=== PATIENT | male | born 1955 | race Two or more races ===

== ENCOUNTER → 2024-06-27 | Outpatient (CLI) | payer OTHER, SELFPAY ==
[2024-06-27 10:22] LABS: Anion Gap 6 (7-16); BUN/Creatinine Ratio 12 Ratio (12-20); Blood Urea Nitrogen 11 mg/dL (9-23); Calcium 9.3 mg/dL (8.3-10.6); Carbon Dioxide 30.2 mMol/L (20.0-31.0); Chloride 102 mMol/L (98-107); Creatinine (Component) 0.9 mg/dL (0.6-1.3); Glucose 156 mg/dL (74-106); Osmolality,Calculated 278 (275-295); Potassium 4.4 mMol/L (3.4-5.1); Sodium 138 mMol/L (136-145); eGFR > 60 See Note
[2024-06-27 10:23] LABS: Glucose Estimated Average 235 mg/dL (80-131); Hemoglobin A1C 9.8 % Hgb (4.8-6.0)
[2024-06-27 10:28] LABS: Creatinine MALB Rnd Ur 77 mg/dL (30-125); Microalbumin Creat Ratio 13 mg/gCrea (<30); Microalbumin, Random Urine 10 mg/L (0-300)
== END | disposition home or self-care (01) ==
PROVIDERS: PCP Family Medicine; Referring Provider Family Medicine; Visit Provider Family Medicine
DX: E11.9 Type 2 diabetes mellitus without complications (principal)
CPT/HCPCS: 36415; 80048; 82043; 82570; 83036

== ENCOUNTER → 2024-11-15 | Outpatient (CLI) | payer OTHER, SELFPAY ==
[2024-11-15 09:51] LABS: Basophils % (Auto) 1 % (0-2.5); Eosinophils # (Auto) 0.1 Thou/mm3 (0.0-0.5); Eosinophils % (Auto) 1 % (0-10); Hematocrit 41.5 % (41.0-53.0); Hemoglobin 14.3 g/dL (13.5-16.0); Immature Granulocytes % (Auto) 0 % (0-0); Immature Granulocytes Auto 0.02 Thou/mm3 (0.00-0.00); Lymphocytes # (Auto) 2.6 Thou/mm3 (1.0-4.8); Lymphocytes % (Auto) 36 % (10-50); Mean Corpuscular HGB Conc 34.5 g/dl (31.0-37.0); Mean Corpuscular Hemoglobin 32.4 pg (25.0-35.0); Mean Corpuscular Volume 94 fL (80-100); Monocytes # (Auto) 0.6 Thou/mm3 (0.0-0.8); Monocytes % (Auto) 8 % (0-12); Neutrophils % (Auto) 55 % (37-80); Nucleated Red Blood Cell % 0 /100 WBC (0); Platelet Count 240 Thou/mm3 (140-440); RDW Standard Deviation 45.4 fL (35.1-43.9); Red Blood Count 4.42 Miln/mm3 (4.50-5.90); White Blood Count 7.3 Thou/mm3 (3.8-10.6)
[2024-11-15 10:01] LABS: Glucose Estimated Average 200 mg/dL (80-131); Hemoglobin A1C 8.6 % Hgb (4.8-6.0)
[2024-11-15 10:08] LABS: Alanine Aminotransferase 25 U/L (10-49); Albumin, Serum 4.5 gm/dL (3.4-4.8); Alkaline Phosphatase 76 U/L (46-116); Anion Gap 7 (7-16); Aspartate Amino Transferase 19 U/L (0-34); BUN/Creatinine Ratio 13 Ratio (12-20); Bilirubin,Direct 0.2 mg/dL (0.0-0.3); Bilirubin,Total 0.7 mg/dL (0.3-1.2); Blood Urea Nitrogen 13 mg/dL (9-23); Carbon Dioxide 28.1 mMol/L (20.0-31.0); Cardiac Risk Estimate 4.4 RATIO (4.0-6.7); Chloride 103 mMol/L (98-107); Cholesterol 212 mg/dL (132-200); Glucose 165 mg/dL (74-106); HDL Cholesterol 48 mg/dL (40-60); LDL Cholesterol,Calculated 125 mg/dL (0-130); Osmolality,Calculated 279 (275-295); Sodium 138 mMol/L (136-145); Total Protein 7.5 gm/dL (5.7-8.2); Triglycerides 196 mg/dL (30-150); eGFR > 60 See Note
[2024-11-15 10:44] LABS: Creatinine MALB Rnd Ur 89 mg/dL (30-125); Microalbumin Creat Ratio 16 mg/gCrea (<30); Microalbumin, Random Urine 14 mg/L (0-300)
== END | disposition home or self-care (01) ==
LOC: COPL 09:00
PROVIDERS: PCP Family Medicine; Referring Provider Family Medicine; Visit Provider Family Medicine
DX: E11.65 Type 2 diabetes mellitus with hyperglycemia (principal); I10 Essential (primary) hypertension
CPT/HCPCS: 36415; 80048; 80061; 80076; 82043; 82570; 83036; 85025

== ENCOUNTER → 2024-11-16 | Outpatient (CLI) | payer OTHER, SELFPAY ==
[2024-11-20 07:10] LABS: Fecal Globin Result NOT DETECTED (NOT DETECTED)
== END | disposition home or self-care (01) ==
PROVIDERS: PCP Family Medicine; Referring Provider Family Medicine; Visit Provider Family Medicine
DX: Z12.11 Encounter for screening for malignant neoplasm of colon (principal)
CPT/HCPCS: 82274; G0328

== ENCOUNTER 2024-12-06 01:26 | Emergency (ER) | payer OTHER, SELFPAY ==
[2024-12-06 01:30] VITALS: BMI 34.0
[2024-12-06 01:41] VITALS: BP 200/104; BP 200/113; PULSE 77; RESP 19; TEMP 36.6; O2SAT 96
--- NOTE | 2024-12-06 01:52 | EDNOTE_ITS ---
ED Headache RME/HPI General Chief Complaint: Headache Stated Complaint: HEADACH HIGH BLOOD PRESSURE Time Seen by Provider: 12/06/24 01:53 Arrival date/time: 12/06/24 01:26 RME / HPI RME / HPI Narrative: This section includes all my notes and documentations, including HPI, PE, and ED course. Ryder Delgado MD HPI: 69 y/o male with Hx of Hypertension and Type II DM presents to ED c/o severe headache x 24 hours. Patient reports taking Valsartan each night. Denies chest pain, nausea, vomiting, or taking any other medication. No other complaints. ROS: All negative except as documented in HPI. Physical Exam: General:? Alert and oriented.? No acute distress.?? Eyes:? Conjunctivae and lids clear.? EOMI.? PERRL. ENT:? No nasal congestion.? Pharynx normal.? Tympanic membrane normal bilaterally.??? Neck:? Supple.? No carotid bruit.? No JVD.?? Heart:? RRR.? Lungs:? No respiratory distress.? Good air movement.? No rhonchi, wheezing, rales.?? Abdomen:? Soft and nontender.? Legs:? No clubbing, cyanosis, edema.? Skin:? Warm and dry.?? Neuro:? Alert and oriented X 3.? Cranial Nerves II-XII grossly intact.? No peripheral motor deficits. I reviewed all diagnostic test results. My interpretation of the EKG is sinus rhythm with no acute ST?T changes. My review of the Head/Brain CT report is NAD. Blood tests unremarkable. UA showed positive leukocyte Estrace, 12 WBC, and bacteria. Positive influenza. At this point, diagnoses include Hypertensive Urgency, Influenza, UTI. Treatment here included Metoprolol, Catapres, Rocephin, Tamiflu, Methylprednisolone, IV fluid. Significant improvement noted. Recommended outpatient treatment. Based on my best medical judgment, made decision no further evaluation or treatment indicated at this time. Patient understands and agrees to the discharge instructions customized and printed, see below. Discharge Instructions from Dr. Delgado printed for you: 1. Fortunately, there is no life-threatening condition. Such as stroke or brain tumor or heart attack. 2. But you have several significant conditions. Very high BP and influenza and urinary tract infection. See attached handouts. 3. Take Tamiflu for influenza. And cefdinir for UTI. 4. To flush your urinary tract, increase oral fluid and maintain clear urine. If dark or yellow, increase oral fluid. 5. Take clonidine 0.1 mg pills as needed based on SBP (higher number of BP). Check your BP twice daily (about 12 hours apart). If SBP > 140, take one pill. If SBP > 160, take two pills. If SBP > 180, take three pills. If SBP > 200, take four pills. 6. See a private doctor on 12/08/2024 for recheck and further care. Ask for help until you are completely better. Ask for help manage your BP. You will live longer with lower BP and slower heart rate. 7. Seek immediate medical care with worsening or with any concerns. Ryder Delgado MD Related Data Previous Rx's ?Medication ?Instructions ?Recorded cefdinir 300 mg capsule 300 mg PO BID #14 caps 12/06 clonidine HCl 0.1 mg tablet 0.1 mg PO BID #60 tabs oseltamivir 75 mg capsule (Tamiflu) 75 mg PO BID 5 day s #10 caps 12/06/24 Allergies Allergy/AdvReac Type Severity Reaction Status Date / Time No Known Allergies Allergy Verified 12/06/24 01:35 Review of Systems Review of Systems Systems Reviewed: All systems reviewed, normal except as documented Past Medical History Past Medical History CARDIAC: Positive Hypertension ENDOCRINE: Positive Diabetes Mellitus Type 2 Social History SMOKING STATUS: Never smoker ED Exam Narrative Physical exam: Refer to HPI above Course Quality Measures none Orders Category Date Time Status Bedside COVID-19 Antigen Test NOW Care 12/06/24 01:54 Active Bedside Influenza A&B Antigen Test NOW Care 12/06/24 01:54 Completed EKG (ED ONLY) *Do not use* NOW Care 12/06/24 01:55 Completed Saline [Insert IV] NOW Care 12/06/24 01:[address] head/brain wo con Stat Exams 12/06/24 01:55 Taken EKG (ED Only) Stat Exams 12/06/24 01:55 Ordered BNP [B-Type Natriuretic Peptide] Stat Lab 12/06/24 02:05 Completed Bilirubin,Direct Stat Lab 12/06/24 02:05 Completed CBC Stat Lab 12/06/24 02:05 Completed CMP [Comprehensive Metabolic Panel] Stat Lab 12/06/24 02:05 Completed COVID-19 Antigen (In-House) Stat Lab 12/06/24 Ordered Free T4 (Free Thyroxine) Stat Lab 12/06/24 02:05 Completed Magnesium Stat Lab 12/06/24 02:05 Completed TSH [Thyroid Stimulating Hormone] Stat Lab 12/06/24 02:05 Completed Troponin I Stat Lab 12/06/24 02:05 Completed UA, C/S IF [Urinalysis, C/S if Indicated] Stat Lab 12/06/24 02:15 Completed Urine Culture Stat Lab 12/06/24 02:15 Received MethylPREDNISolone.* [SoluMEDROL Inj] Med 12/06/24 03:33 Discontinued 125 mg IVP X1 ONE Metoprolol Tartrate [Lopressor] Med 12/06/24 01:55 Discontinued 25 mg PO X1 ONE Oseltamivir [Tamiflu] Med 12/06/24 03:32 Discontinued 75 mg PO X1 ONE Sodium Chloride 0.9% 1000 ml [Ns] 1,000 ml Med 12/06/24 03:33 Active IV 999 mls/hr cefTRIAXone/D5w 1gm IV premix [Rocephin/D5w 1gm IV Med 12/06/24 02:55 Discontinued premix] 1 gm in 50 ml IV X1 cloNIDine HCL [Catapres] Med 12/06/24 01:55 Discontinued 0.3 mg PO X1 ONE Vital Signs Vital signs: Vital Signs Temperature 98 F 12/06/24 01:41 Pulse Rate 77 12/06/24 01:41 Respiratory Rate 19 12/06/24 01:41 Blood Pressure 200/104 H 12/06/24 01:41 Pulse Oximetry (%) 96 12/06/24 01:41 Oxygen Delivery Method Room Air 12/06/24 01:41 Headache MDM Narrative MDM Narrative:: Scribe Attestation: Sheila Manzano am scribing for and in the presence of Dr. Delgado. Provider Notation: Although this document has been carefully reviewed, there may still be some phonetic and other typographical errors.? These errors are purely grammatical due to imperfections in the software program and should not be construed in any way to? compromise the substance of the patient's medical care during this visit. 69 y/o male with Hx of Hypertension and Type II DM presents to ED c/o severe headache x 24 hours. Patient reports taking Valsartan each night. Denies chest pain, nausea, vomiting, or taking any other medication. No other complaints. Patient data External records reviewed:: [facility] previous records (No prior ED records available for review.) Clinical information provided by:: patient Social determinants that could affect healthcare access:: none Patient has the following chronic illnesses:: Hypertension, Type II DM How is presenting disease/condition affected by chronic disease/condition?: exacerbated by Evaluation data The following diagnostics were reviewed and interpreted by me:: lab results, radiology exam(s) and EKG tracing(s) Lab and/or radiology exams considered but not ordered:: None Interpretation Summary: I reviewed all diagnostic test results. My interpretation of the EKG is sinus rhythm with no acute ST?T changes. My review of the Head/Brain CT report is NAD. Blood tests unremarkable. UA showed positive leukocyte Estrace, 12 WBC, and bacteria. Positive influenza. Medications / Prescriptions Medications or Prescriptions considered but not ordered:: None Medication administrations:: Medication Administration History Sodium Chloride (Ns) 1,000 mls @ 999 mls/hr IV .Q1H1M ONE Stop: 12/06/24 04:33 Discontinued Medications Clonidine (Clonidine Hcl 0.1 Mg Tablet) 0.3 mg PO X1 ONE Stop: 12/06/24 01:56 Last Admin: 12/06/24 02:12 Dose: 0.3 mg Documented By: EF Ceftriaxone Sodium/Dextrose (Rocephin/D5w 1gm Iv Premix) 1 gm in 50 mls @ 100 mls/hr IV X1 ONE Stop: 12/06/24 03:24 Methylprednisolone Sodium Succinate (Methylprednisolone Sod Succ 62.5 Mg/Ml 2ml Vial) 125 mg IVP X1 ONE Stop: 12/06/24 03:34 Metoprolol Tartrate (Metoprolol Tartrate 25 Mg Tablet) 25 mg PO X1 ONE Stop: 12/06/24 01:56 Last Admin: 12/06/24 02:12 Dose: 25 mg Documented By: EF Oseltamivir Phosphate (Oseltamivir 75 Mg Capsule) 75 mg PO X1 ONE Stop: 12/06/24 03:33 Metoprolol, Catapres, Rocephin, Tamiflu, Methylprednisolone, IV fluid. Consultations Consultation(s) initiated? (list below): No Diagnosis Differential diagnosis headache: migraine, tension headache, subarachnoid hemorrhage, headache, sinusitis and other (Influenza, Sepsis, URI, Hypertensive emergency, Hyperglycemia, UTI) Most likely diagnosis given after review of the tests above:: Hypertensive Urgency, Influenza, UTI Admission Indicated Admission indicated?: not indicated Explain why admission is indicated or not indicated:: With significant improvement, there was no indication for admission. Admission Request Was there a request for admission?: No Disposition Plan Disposition Plan: Discharge Discharge Attestation Discharge Attestation: The patient and all family members were given an opportunity to ask questions and understood the discharge instructions. Discharge instructions specifically effects, indications for sooner follow up or return to the emergency department, and the expected course of current diagnosis. Patient condition: Stable Discharge Plan Plan Patient Disposition: HOME (Self Care) Prescriptions/Referrals Prescriptions/Med Rec: New clonidine HCl 0.1 mg tablet 0.1 mg PO BID Qty: 60 0RF oseltamivir [Tamiflu] 75 mg capsule 75 mg PO BID 5 Days Qty: 10 0RF cefdinir 300 mg capsule 300 mg PO BID Qty: 14 0RF Problem List Clinical Impression: Hypertensive urgency, Influenza, UTI (urinary tract infection) Patient/Caregiver Discharge Instructions Discharge Activity: activity as tolerated Education Materials: ED Influenza (Adult), ED Hypertension, Established, ED Bladder Infection, Male (Adult) Additional Instructions: Discharge Instructions from Dr. Delgado printed for you: 1. Fortunately, there is no life-threatening condition. Such as stroke or brain tumor or heart attack. 2. But you have several significant conditions. Very high BP and influenza and urinary tract infection. See attached handouts. 3. Take Tamiflu for influenza. And cefdinir for UTI. 4. To flush your urinary tract, increase oral fluid and maintain clear urine. If dark or yellow, increase oral fluid. 5. Take clonidine 0.1 mg pills as needed based on SBP (higher number of BP). Check your BP twice daily (about 12 hours apart). If SBP > 140, take one pill. If SBP > 160, take two pills. If SBP > 180, take three pills. If SBP > 200, take four pills. 6. See a private doctor on 12/08/2024 for recheck and further care. Ask for help until you are completely better. Ask for help manage your BP. You will live longer with lower BP and slower heart rate. 7. Seek immediate medical care with worsening or with any concerns. Instrucciones de yefri del Dr. Delgado, impresas para usted: 1. Afortunadamente, no presenta ninguna afecci?n potencialmente mortal, candy un derrame cerebral, un tumor cerebral o un infarto. 2. Sin embargo, padece varias afecciones importantes: presi?n arterial muy yefri, influenza e infecci?n del tracto urinario. Consulte los folletos adjuntos. 3. [place] Tamiflu para la influenza y cefdinir para la infecci?n urinaria. 4. Para limpiar las v?as urinarias, aumente la ingesta de l?quidos y mantenga la orina ramos. Si es oscura o amarilla, aumente la ingesta de l?quidos. 5. [place] pastillas de clonidina de 0.1 mg seg?n sea necesario, seg?n la presi?n arterial sist?lica (PAS). Controle kamara presi?n arterial dos veces al d?a (con un intervalo de aproximadamente 12 horas). Si la PAS es > 140, tome brii pastilla. Si la PAS es > 160, tome dos pastillas. Si la PAS es > 180, tome robert pastillas. Si la PAS es > 200, tome cuatro pastillas. 6. Consulte con un m?dico particular el 08/12/2024 para brii nueva revisi?n y atenci?n adicional. Solicite ayuda hasta que se recupere por completo. Solicite ayuda para controlar kamara presi?n arterial. Vivir? m?s tiempo con brii presi?n arterial m?s baja y brii frecuencia card?qiana m?s lenta. 7. Busque atenci?n m?dica inmediata si presenta un empeoramiento o si tiene alguna inquietud. Print Language: [place] Citizen Stand Alone Forms: Eloisa Award Info., Patient Portal Info Letter
--- NOTE | 2024-12-06 01:55 | XR_ITS ---
Examination: CT brain head without contrast. 2-D sagittal coronal reconstructions Date and time of exam:December 06, 2024, 0231 hours INDICATIONS: High blood pressure with severe headache today CTDI: vol (mGy):57.4 DLP: (mGycm):1157 Technique: Multiple CT axial sections of the brain have been obtained, 5 mm slice thickness. Contrast has not been administered. 2-D sagittal, coronal reconstructions have been obtained Low dose protocols were performed. One or more of the following dose reduction techniques were used; automated exposure control, adjustment of the mA and/or KV according to patient size, use of iterative reconstruction technique. Findings: No significant ventricular enlargement. Intra-axial or extra-axial hemorrhage density is not seen. No mass effect or midline shift Basal cisterns are not remarkable. Fourth ventricle is midline. Cranial vault intact. Impression: Negative for acute hemorrhage, mass effect or midline shift
[2024-12-06 02:12] VITALS: BP 196/115; PULSE 82; PULSE 85
[2024-12-06] MEDS: cloNIDine HCL 0.1 MG TABLET 0.3 MG PO (02:12)
[2024-12-06] MEDS: METOPROLOL TARTRATE 25 MG TABLET PO (02:12)
[2024-12-06 02:30] LABS: Collection Type, Urine Clean Catch
[2024-12-06 02:32] LABS: Basophils % (Auto) 0 % (0-2.5); Eosinophils % (Auto) 0 % (0-10); Hematocrit 42.1 % (41.0-53.0); Hemoglobin 14.8 g/dL (13.5-16.0); Immature Granulocytes % (Auto) 0 % (0-0); Immature Granulocytes Auto 0.03 Thou/mm3 (0.00-0.00); Lymphocytes # (Auto) 3.1 Thou/mm3 (1.0-4.8); Lymphocytes % (Auto) 29 % (10-50); Mean Corpuscular HGB Conc 35.2 g/dl (31.0-37.0); Mean Corpuscular Hemoglobin 32.2 pg (25.0-35.0); Mean Corpuscular Volume 92 fL (80-100); Monocytes # (Auto) 0.7 Thou/mm3 (0.0-0.8); Monocytes % (Auto) 6 % (0-12); Neutrophils % (Auto) 64 % (37-80); Nucleated Red Blood Cell % 0 /100 WBC (0); Platelet Count 244 Thou/mm3 (140-440); RDW Standard Deviation 44.3 fL (35.1-43.9); White Blood Count 10.8 Thou/mm3 (3.8-10.6)
[2024-12-06 02:38] LABS: Bacteria,Urine Rare; Bilirubin,Urine Negative (Negative); Blood,Urine Negative (Negative); Clarity,Urine Clear (Clear/Hazy); Color,Urine Colorless (Lt Yel-Yel); Glucose, Urine Negative (Negative); Ketones,Urine Negative (Negative); Leukocyte Esterase,Urine Positive (Negative); Nitrite,Urine Negative (Negative); PH,Urine 6.5 (5.0-7.0); Protein,Urine Negative (Neg - Trace); RBC,Urine < 1 /hpf (0-3); Specific Gravity,Urine 1.007 (1.001-1.035); Squamous Epithelial Cell,Urine < 1 /hpf (0-5); Urobilinogen,Urine Negative mg/dL (0.0-1.0); WBC,Urine 12 /hpf (0-5)
[2024-12-06 02:45] LABS: Culture Indicated,Urine Yes
[2024-12-06 02:53] LABS: B-Type Natriuretic Peptide 39 pg/mL (0-100)
[2024-12-06 02:57] LABS: Alanine Aminotransferase 19 U/L (10-49); Albumin, Serum 4.8 gm/dL (3.4-4.8); Albumin/Globulin Ratio 1.8 (1.2-2.2); Alkaline Phosphatase 88 U/L (46-116); Anion Gap 8 (7-16); Aspartate Amino Transferase 15 U/L (0-34); BUN/Creatinine Ratio 20 Ratio (12-20); Bilirubin,Direct 0.2 mg/dL (0.0-0.3); Bilirubin,Total 0.7 mg/dL (0.3-1.2); Blood Urea Nitrogen 24 mg/dL (9-23); Calcium 9.4 mg/dL (8.3-10.6); Calcium (Corrected) 9.4 mg/dL (8.5-10.1); Carbon Dioxide 28.7 mMol/L (20.0-31.0); Chloride 101 mMol/L (98-107); Creatinine (Component) 1.2 mg/dL (0.6-1.3); Estimated Creatinine Clearance 49.2 mL/min (>60); Free T4 (Free Thyroxine) 1.28 ng/dL (0.89-1.76); Globulin 2.7 gm/dL (2.3-3.5); Glucose 188 mg/dL (74-106); Magnesium 1.9 mg/dL (1.6-2.6); Osmolality,Calculated 284 (275-295); Sodium 138 mMol/L (136-145); Thyroid Stimulating Hormone 2.49 uIU/mL (0.55-4.78); Total Protein 7.5 gm/dL (5.7-8.2); Troponin I < 0.020 ng/mL (0.0-0.045); eGFR > 60 See Note
--- NOTE | 2024-12-06 03:36 | PRELIM_ITS ---
CT scan of the head without intravenous contrast (axial sections with sagittal and coronal reformats) December 06, 2024 0231 hours Clinical history: severe headache and high BP No prior study is available for comparison. Findings: There is no evidence of intracranial hemorrhage, mass effect or midline shift. There are periventricular white matter hypodensities, compatible with chronic small vessel ischemia. The CSF spaces are prominent consistent with volume loss. The calvarium is unremarkable. The mastoid air cells and the visualized paranasal sinuses are clear. Impression: No evidence of intracranial hemorrhage, mass effect or midline shift. Periventricular chronic small vessel ischemia and volume loss. Report Electronically Signed By: Kin Biggs 12/06/2024 3:36:06 AM [EST]
[2024-12-06 03:49] VITALS: BP 103/60; PULSE 62; RESP 16; TEMP 37.1; O2SAT 96
[2024-12-06] MEDS: OSELTAMIVIR 75 MG CAPSULE PO (03:51)
[2024-12-06] MEDS: MethylPREDNISolone SOD SUCC 62.5 MG/ML 2ML VIAL 125 MG IVP (03:52)
[2024-12-06] MEDS: SODIUM CHLORIDE 0.9% 1000 ML 1,000 ML 999 ML IV (03:54)
[2024-12-06] MEDS: cefTRIAXone/D5w 1gm IV premix 1 GM/50 ML BAG IV (03:55)
[2024-12-06 05:22] VITALS: BP 109/63; PULSE 64; RESP 16; O2SAT 97
== END 2024-12-06 05:23 | disposition home or self-care (01) ==
LOC: SERX 03:51
PROVIDERS: Emergency Provider Emergency Medicine; PCP Family Medicine
DX: I16.0 Hypertensive urgency (principal); J11.1 Influenza due to unidentified influenza virus with other respiratory manifestations; N39.0 Urinary tract infection, site not specified; I10 Essential (primary) hypertension; E11.9 Type 2 diabetes mellitus without complications
CPT/HCPCS: 36415; 70450; 80053; 81001; 82248; 83735; 83880; 84439; 84443; 84484; 85025; 87077; 87086; 87186; 87400; 87811; 93005; 96361; 96365; 96375; 99284; J0696; J2919; J7030; A9270

== ENCOUNTER → 2025-03-05 | Outpatient (CLI) | payer OTHER, SELFPAY ==
[2025-03-05 10:46] LABS: Anion Gap 8 (7-16); BUN/Creatinine Ratio 16 Ratio (12-20); Blood Urea Nitrogen 16 mg/dL (9-23); Calcium 9.3 mg/dL (8.3-10.6); Carbon Dioxide 30.0 mMol/L (20.0-31.0); Chloride 101 mMol/L (98-107); Creatinine (Component) 1.0 mg/dL (0.6-1.3); Glucose 134 mg/dL (74-106); Osmolality,Calculated 280 (275-295); Potassium 4.5 mMol/L (3.4-5.1); Sodium 139 mMol/L (136-145); eGFR > 60 See Note
[2025-03-05 10:52] LABS: Prostate Specific Antigen 1.84 ng/mL (0-4.00)
[2025-03-05 11:10] LABS: Glucose Estimated Average 183 mg/dL (80-131); Hemoglobin A1C 8.0 % Hgb (4.8-6.0)
== END | disposition home or self-care (01) ==
PROVIDERS: PCP Family Medicine; Referring Provider Family Medicine; Visit Provider Family Medicine
DX: E11.42 Type 2 diabetes mellitus with diabetic polyneuropathy (principal); E11.65 Type 2 diabetes mellitus with hyperglycemia; N40.0 Benign prostatic hyperplasia without lower urinary tract symptoms
CPT/HCPCS: 36415; 80048; 83036; 84153

== ENCOUNTER 2025-04-19 13:58 | Emergency (ER) | payer OTHER, SELFPAY ==
[2025-04-19 13:59] VITALS: BMI 26.6
[2025-04-19 14:22] VITALS: BP 145/89; PULSE 104; RESP 18; TEMP 37.2; O2SAT 96
--- NOTE | 2025-04-19 14:33 | XR_ITS ---
Examination: CT abdomen and pelvis without contrast. Coronal 3-D reconstructions. Sagittal 2-D reconstructions. Date and time of exam: April 19, 2025, 1515 hours INDICATIONS: Dysuria hematuria today CTDI: vol (mGy): 8.43 DLP: (mGycm): 197 Technique: Axial images of the abdomen have been obtained, 3 mm slice thickness Intravenous contrast material has not been administered. Low dose protocols were performed. One or more of the following dose reduction techniques were used; automated exposure control, adjustment of the mA and/or KV according to patient size, use of iterative reconstruction technique. Findings: 8 mm liver cyst No gallstones Spleen is not enlarged No pancreatic or adrenal mass 25 mm right renal cyst Perinephric stranding No renal or ureteral calculi Aorta normal size Colonic diverticulosis, no diverticulitis Normal appendix Urinary bladder shows wall thickening up to 10 mm Mild prostatomegaly Fat-containing inguinal hernias Moderate osteopenia IMPRESSION: Perinephric stranding, consider urinary tract infection Cystitis pattern Normal appendix
--- NOTE | 2025-04-19 14:34 | PD.EDRME ---
Rapid Medical Screening Exam RME Arrival date/time: 04/19/25 13:58 69-year-old male presents to the emergency room today complaints of hematuria and dysuria Chief Complaint: Urogenital-Male Time Seen by Provider: 04/19/25 14:33 Vital signs: Vital Signs Temperature 99 F 04/19/25 14:22 Pulse Rate 104 H 04/19/25 14:22 Respiratory Rate 18 04/19/25 14:22 Blood Pressure 145/89 H 04/19/25 14:22 Pulse Oximetry (%) 96 04/19/25 14:22 Oxygen Delivery Method Room Air 04/19/25 14:22
[2025-04-19 14:48] LABS: Basophils # (Auto) 0.0 Thou/mm3 (0.0-0.2); Basophils % (Auto) 0 % (0-2.5); Eosinophils # (Auto) 0.0 Thou/mm3 (0.0-0.5); Eosinophils % (Auto) 0 % (0-10); Hematocrit 43.2 % (41.0-53.0); Hemoglobin 14.9 g/dL (13.5-16.0); Immature Granulocytes Auto 0.06 Thou/mm3 (0.00-0.00); Lymphocytes # (Auto) 1.7 Thou/mm3 (1.0-4.8); Lymphocytes % (Auto) 11 % (10-50); Mean Corpuscular HGB Conc 34.5 g/dl (31.0-37.0); Mean Corpuscular Hemoglobin 32.3 pg (25.0-35.0); Mean Corpuscular Volume 94 fL (80-100); Monocytes # (Auto) 1.1 Thou/mm3 (0.0-0.8); Monocytes % (Auto) 7 % (0-12); Neutrophils # (Auto) 12.9 Thou/mm3 (1.8-7.7); Neutrophils % (Auto) 82 % (37-80); Nucleated Red Blood Cell # 0.00 Thou/mm3 (0.00-0.00); Nucleated Red Blood Cell % 0 /100 WBC (0); Platelet Count 224 Thou/mm3 (140-440); RDW Standard Deviation 44.3 fL (35.1-43.9); Red Blood Count 4.62 Miln/mm3 (4.50-5.90); White Blood Count 15.8 Thou/mm3 (3.8-10.6)
[2025-04-19 15:03] LABS: Collection Type, Urine Clean Catch; Squamous Epithelial Cell,Urine 0 /hpf (0-5)
[2025-04-19 15:11] LABS: Alanine Aminotransferase 18 U/L (10-49); Albumin, Serum 4.9 gm/dL (3.4-4.8); Albumin/Globulin Ratio 1.6 (1.2-2.2); Alkaline Phosphatase 86 U/L (46-116); Anion Gap 9 (7-16); Aspartate Amino Transferase 17 U/L (0-34); BUN/Creatinine Ratio 13 Ratio (12-20); Bilirubin,Total 0.7 mg/dL (0.3-1.2); Blood Urea Nitrogen 13 mg/dL (9-23); Calcium 9.9 mg/dL (8.3-10.6); Calcium (Corrected) 9.9 mg/dL (8.5-10.1); Carbon Dioxide 28.9 mMol/L (20.0-31.0); Chloride 98 mMol/L (98-107); Creatinine (Component) 1.0 mg/dL (0.6-1.3); Estimated Creatinine Clearance 61.1 mL/min (>60); Globulin 3.1 gm/dL (2.3-3.5); Glucose 217 mg/dL (74-106); Osmolality,Calculated 279 (275-295); Potassium 4.4 mMol/L (3.4-5.1); Sodium 136 mMol/L (136-145); Total Protein 8.0 gm/dL (5.7-8.2); eGFR > 60 See Note
[2025-04-19 15:32] LABS: Bilirubin,Urine Negative (Negative); Blood,Urine 3+ (Negative); Color,Urine Dark-Red (Lt Yel-Yel); Glucose, Urine 3+ (Negative); Ketones,Urine Negative (Negative); Leukocyte Esterase,Urine Positive (Negative); Nitrite,Urine Negative (Negative); PH,Urine 7.0 (5.0-7.0); Protein,Urine 2+ (Neg - Trace); RBC,Urine 3558 /hpf (0-3); Specific Gravity,Urine 1.023 (1.001-1.035); Urobilinogen,Urine Negative mg/dL (0.0-1.0); WBC,Urine 47 /hpf (0-5)
[2025-04-19 15:53] LABS: Culture Indicated,Urine Yes
[2025-04-19 15:54] LABS: Clarity,Urine Bloody (Clear/Hazy)
[2025-04-19 16:09] VITALS: BP 148/87; PULSE 110; RESP 19; TEMP 36.6; O2SAT 96
--- NOTE | 2025-04-19 16:21 | EDNOTE_ITS ---
ED Male Genitalurinary RME/HPI General Chief complaint: Urogenital-Male Stated complaint: LOWER ABD PAIN WITH BLOODY URINATION X1HR Time Seen by Provider: 04/19/25 14:33 Arrival date/time: 04/19/25 13:58 RME / HPI RME / HPI Narrative: 69-year-old male presents to the emergency room today complaints of hematuria and dysuria severity moderate, started around 1 hour ago. Patient denies any vomiting denies any abdominal pain denies any flank pain denies any fever. Denies any other complaints patient is taking 81 mg of aspirin daily. Related Data Previous Rx's ?Medication ?Instructions ?Recorded cefdinir 300 mg capsule 300 mg PO BID #14 caps 12/06 clonidine HCl 0.1 mg tablet 0.1 mg PO BID #60 tabs ciprofloxacin HCl 500 mg tablet 500 mg PO BID #14 tabs 04/19/25 (Cipro) phenazopyridine 200 mg tablet 200 mg PO TID 6 doses #6 tabs 04/19/25 (Pyridium) Allergies Allergy/AdvReac Type Severity Reaction Status Date / Time No Known Allergies Allergy Verified 04/19/25 14:01 Review of Systems Review of Systems Narrative Review of Systems: Review of system reviewed and within normal limits except mentioned in HPI ED Exam Narrative Physical exam: VITAL SIGNS: Reviewed. GENERAL APPEARANCE: Alert and interactive, follows commands, no acute distress, HEAD AND FACE: Non-traumatic. ENT: PERRL, pink conjunctivitis, eyelid no trauma, Mucous membrane moist. NECK: Supple, nontender, no nuchal rigidity. CHEST: No tenderness, no crepitus, no paradoxical movement, no retractions. LUNGS: Clear, well ventilated, symmetric, no rales, no wheezing, no ronchi, no stridor, good breath sounds bilaterally. HEART: Regular rate, regular rhythm, no murmur, no gallops. ABDOMEN: Soft, positive bowel sounds, nondistended, no guarding, nontender, no rebound, no masses, RECTAL: Deferred. GENITAL: Deferred. NEUROLOGICAL: Gross motor function intact sensory function intact, Appropriate for age. MUSCULOSKELETAL: low back nontender, full range of motion. EXTREMITIES: Nontender, full range of motion. SKIN: Color pink, dry, no rash, no lacerations, no abrasions, no contusions. LYMPHATICS: Deferred. Course Quality Measures none Orders Category Date Time Status CT abdomen pelvis wo con Stat Exams 04/19/25 14:33 Completed US scrotum Stat Exams 04/19/25 16:38 Completed CBC Stat Lab 04/19/25 14:39 Completed Comprehensive Metabolic Panel Stat Lab 04/19/25 14:39 Completed UA, C/S IF [Urinalysis, C/S if Indicated] Stat Lab 04/19/25 14:49 Completed Urine Culture Stat Lab 04/19/25 14:49 Received Phenazopyridine HCl [Pyridium] Med 04/19/25 16:19 Discontinued 200 mg PO X1 ONE Ringers Lactated 1000 ml [Lactated Ringers] 1,000 ml Med 04/19/25 16:20 Discontinued IV 999 mls/hr cefTRIAXone/D5w 1gm IV premix [Rocephin/D5w 1gm IV Med 04/19/25 16:20 Discontinued premix] 1 gm in 50 ml IV X1 Vital Signs Vital signs: Vital Signs Temperature 99 F 04/19/25 14:22 Pulse Rate 104 H 04/19/25 14:22 Respiratory Rate 18 04/19/25 14:22 Blood Pressure 145/89 H 04/19/25 14:22 Pulse Oximetry (%) 96 04/19/25 14:22 Oxygen Delivery Method Room Air 04/19/25 14:22 Urogenital - Male MDM Narrative MDM Narrative:: 69-year-old male presents to the emergency room today complaints of hematuria and dysuria severity moderate, started around 1 hour ago. Patient denies any vomiting denies any abdominal pain denies any flank pain denies any fever. Denies any other complaints patient is taking 81 mg of aspirin daily. Patient's laboratory workup is significant for WBC count of 15.8, urinalysis positive for UTI there is no anemia noted. CMP unremarkable. CT scan of the abdomen and pelvis Perinephric stranding, consider urinary tract infection Cystitis pattern Normal appendix Ultrasound of the scrotum came back No testicular torsion or testicular mass Moderate bilateral varicoceles Patient was given IV fluids, IV ceftriaxone, and able to urinate in the emergency room without any pain or difficulty. Advised the patient to follow-up with urologist in few days. Patient data External records reviewed:: None Clinical information provided by:: patient and family Social determinants that could affect healthcare access:: none Patient has the following chronic illnesses:: None How is presenting disease/condition affected by chronic disease/condition?: exacerbated by Evaluation data The following diagnostics were reviewed and interpreted by me:: lab results and radiology exam(s) Lab and/or radiology exams considered but not ordered:: None Interpretation Summary: See results MDM Medications / Prescriptions Medications or Prescriptions considered but not ordered:: None Medication administrations:: Medication Administration History Discontinued Medications Lactated Ringer's (Lactated Ringers) 1,000 mls @ 999 mls/hr IV .Q1H1M ONE Stop: 04/19/25 17:20 Last Infusion: 04/19/25 17:46 Dose: Infused Documented By: Admin: 04/19/25 16:45 Dose: 999 mls/hr Documented By: ELLEN Ceftriaxone Sodium/Dextrose (Rocephin/D5w 1gm Iv Premix) 1 gm in 50 mls @ 100 mls/hr IV X1 ONE Stop: 04/19/25 16:49 Last Infusion: 04/19/25 17:16 Dose: Infused Documented By: Admin: 04/19/25 16:46 Dose: 100 mls/hr Documented By: ELLEN Phenazopyridine HCl (Phenazopyridine Hcl 100 Mg Tablet) 200 mg PO X1 ONE Stop: 04/19/25 16:20 Last Admin: 04/19/25 16:46 Dose: 200 mg Documented By: ELLEN Pyridium, ceftriaxone, IV fluids Consultations Consultation(s) initiated? (list below): No Diagnosis Urogenital Male Differential Diagnosis: urinary tract infection Most likely diagnosis given after review of the tests above:: Hematuria, UTI Admission Indicated Admission indicated?: not indicated Admission Request Was there a request for admission?: No Disposition Plan Disposition Plan: Discharge Discharge Attestation Discharge Attestation: The patient and all family members were given an opportunity to ask questions and understood the discharge instructions. Discharge instructions specifically effects, indications for sooner follow up or return to the emergency department, and the expected course of current diagnosis. Patient condition: Stable Discharge Plan Plan Patient Disposition: HOME (Self Care) Discharge Disposition comment: Stable Prescriptions/Referrals Prescriptions/Med Rec: New ciprofloxacin HCl [Cipro] 500 mg tablet 500 mg PO BID Qty: 14 0RF phenazopyridine [Pyridium] 200 mg tablet 200 mg PO TID Qty: 6 0RF No Action clonidine HCl 0.1 mg tablet 0.1 mg PO BID Qty: 60 0RF cefdinir 300 mg capsule 300 mg PO BID Qty: 14 0RF Referrals: Paul Montoya MD [Primary Care Provider] - In 1 week Problem List Clinical Impression: Urinary tract infection, Hematuria Patient/Caregiver Discharge Instructions Discharge Activity: activity as tolerated Education Materials: ED Hematuria Additional Instructions: Thank you for the opportunity for serving you today. You are stable for discharged . You are advised to: Follow-up with your PCP in 1 to 2 days and asked for referral to urologist Return to ED for worsening of symptoms Increase oral fluids Take medication as prescribed Print Language: Amharic Stand Alone Forms: Eloisa Award Info., Patient Portal Info Letter PA/SOLAR SALES ENERGY ADVISOR Supervising Physician PA/SOLAR SALES ENERGY ADVISOR Supervising Physician: MD [place]
[2025-04-19 16:23] VITALS: BP 143/88; PULSE 110; RESP 19; TEMP 36.7; O2SAT 97
--- NOTE | 2025-04-19 16:38 | XR_ITS ---
EXAMINATION: Testicular sonography complete TECHNIQUE: Grayscale sonographic images testes, assessment arterial inflow and venous outflow Doppler spectral analysis and color flow analysis Date and time: April 19, 2025, 1701 hours INDICATIONS: Onset right testicular pain and swelling today FINDINGS: Right testis 3.8 cm epididymis 1.1 cm Arterial flow the testicle. No testicular mass Mild hydrocele Moderate varicocele Left testis 4.4 cm, epididymis 12 mm Arterial flow to the testicle Epididymal cyst 5 mm No testicular mass Mild hydrocele Moderate varicocele IMPRESSION: No testicular torsion or testicular mass Moderate bilateral varicoceles
[2025-04-19] MEDS: RINGERS LACTATED 1000 ML 1,000 ML 999 ML IV (16:45)
[2025-04-19] MEDS: PHENAZOPYRIDINE HCL 100 MG TABLET 200 MG PO (16:46)
[2025-04-19] MEDS: cefTRIAXone/D5w 1gm IV premix 1 GM/50 ML BAG IV (16:46)
[2025-04-19 17:57] VITALS: BP 113/80; PULSE 96; RESP 19; O2SAT 96
[2025-04-19 18:16] VITALS: BP 118/80; PULSE 96; RESP 16; TEMP 36.8; O2SAT 96
[2025-04-19 19:41] VITALS: BP 135/85; PULSE 95; RESP 14; TEMP 37; O2SAT 99
== END 2025-04-19 19:42 | disposition home or self-care (01) ==
PROVIDERS: Nurse Practitioner Primary Care; Emergency Provider Family Medicine; PCP Pediatrics
DX: N39.0 Urinary tract infection, site not specified (principal); R31.9 Hematuria, unspecified; I86.1 Scrotal varices
CPT/HCPCS: 36415; 74176; 76870; 80053; 81001; 85025; 87077; 87086; 87186; 96361; 96365; 99284; J0696; J7120; A9270

== ENCOUNTER → 2025-05-21 | Outpatient (CLI) | payer OTHER, SELFPAY ==
[2025-05-21 10:10] LABS: Glucose Estimated Average 171 mg/dL (80-131); Hemoglobin A1C 7.6 % Hgb (4.8-6.0)
[2025-05-21 10:33] LABS: Anion Gap 6 (7-16); BUN/Creatinine Ratio 19 Ratio (12-20); Blood Urea Nitrogen 19 mg/dL (9-23); Calcium 9.6 mg/dL (8.3-10.6); Carbon Dioxide 32.9 mMol/L (20.0-31.0); Chloride 102 mMol/L (98-107); Creatinine (Component) 1.0 mg/dL (0.6-1.3); Glucose 131 mg/dL (74-106); Osmolality,Calculated 285 (275-295); Potassium 4.4 mMol/L (3.4-5.1); Sodium 141 mMol/L (136-145); eGFR > 60 See Note
== END | disposition home or self-care (01) ==
LOC: COPL 08:51
PROVIDERS: PCP Family Medicine; Referring Provider Family Medicine; Visit Provider Family Medicine
DX: E11.42 Type 2 diabetes mellitus with diabetic polyneuropathy (principal)
CPT/HCPCS: 36415; 80048; 83036